=== PATIENT | male | born 1945 | race Caucasian/White ===

== ENCOUNTER 2018-02-07 20:38 | Inpatient (IN) ==
[2018-02-07] MEDS ORDERED: Acetaminophen 325 MG TABLET PO PRN (21:08)
[2018-02-07] MEDS ORDERED: tiZANidine 4 MG TABLET PO PRN (21:08)
[2018-02-07] MEDS ORDERED: D5% in Water 1,000 ML IVC PRN (21:17)
[2018-02-07] MEDS ORDERED: *HR* Dextrose 50 % in Water (Syg) 50 ML SYRINGE IVP PRN (21:17)
[2018-02-07] MEDS ORDERED: Dextrose Gel 15 GM/37.5 ML TUBE PO PRN ×2 (21:17)
[2018-02-07] MEDS ORDERED: Mag Hydrox/Al Hydrox/Simeth 30 ML UDC PO PRN (21:46)
[2018-02-07] MEDS: Gabapentin 300 MG CAPSULE PO SCH (23:09)
[2018-02-07] MEDS: traZODone 50 MG TABLET PO SCH (23:10)
[2018-02-07] MEDS: Ipratropium/Albuterol Neb 3 ML IH SCH (23:11)
[2018-02-08] MEDS: Ipratropium/Albuterol Neb 3 ML IH SCH ×2 (03:42→09:25)
[2018-02-08] MEDS: *HR* OxyCODONE Immed Rel 5 MG TABLET PO PRN ×3 (03:53→14:34)
[2018-02-08] MEDS: *HR* Enoxaparin 40 MG/0.4 ML SYRINGE SQ SCH (05:27)
[2018-02-08 06:09] LABS: Basophils # 0.1 K/mcL (0.0-0.2); Basophils % 0.6 %; Eosinophils # 0.6 K/mcL (0.0-0.6); Hematocrit 33.1 % (37.5-50.1); Immature Granulocytes % 0.9 % (0-4); Lymphocytes # 1.4 K/mcL (0.6-4.6); Lymphocytes % 11.7 %; Mean Corpuscular HGB Conc 33.2 g/dL (31.6-35.5); Mean Corpuscular Hemoglobin 30.5 pg (28.0-33.3); Mean Corpuscular Volume 91.7 fL (83.0-100.0); Mean Platelet Volume 9.8 fL (9.4-12.4); Monocytes # 1.1 K/mcL (0.0-1.3); Monocytes % 9.5 %; Neutrophils # 8.7 K/mcL (1.6-8.9); Platelet Count 398 K/mcL (140-400); Red Blood Count 3.61 M/mcL (4.19-5.50); Red Cell Distribution Width 13.4 % (11.5-14.5); Segmented Neutrophils % 72.3 %
[2018-02-08 06:16] LABS: INR 1.3; Prothrombin Time 14.2 Seconds (9.4-12.1)
[2018-02-08 06:18] LABS: Activated Partial Thrombo Time 29.6 Seconds (26.0-36.0)
[2018-02-08 06:28] LABS: Alanine Aminotransferase 44 Units/L (7-52); Albumin 3.6 g/dL (3.5-5.7); Albumin/Globulin Ratio 1.3 (1.1-2.2); Alkaline Phosphatase 46 Units/L (34-104); Aspartate Amino Transferase 36 Units/L (13-39); BUN/Creatinine Ratio 22 (6-26); Bilirubin,Total 0.8 mg/dL (0.3-1.0); Blood Urea Nitrogen 17 mg/dL (8-23); Calcium 8.8 mg/dL (8.6-10.3); Carbon Dioxide 23 mEq/L (23-29); Chloride 104 mEq/L (98-107); Globulin 2.7 g/dL (2.4-3.5); Glucose 148 mg/dL (70-105); Magnesium 2.2 mg/dL (1.6-2.6); Osmolality,Calculated 280 (280-300); Potassium 3.9 mEq/L (3.5-5.1); Sodium 133 mEq/L (136-145); Total Protein 6.3 g/dL (6.4-8.9); eGFR For Non-African Americans > 60 (> 60)
[2018-02-08] MEDS: Insulin LISPRO 300 UNITS/3 ML VIAL SQ SCH ×3 (07:40→16:35)
[2018-02-08] MEDS: Aspirin 81 MG TAB.CHEW PO SCH (09:15)
[2018-02-08] MEDS: *HR* Metformin 500 MG TABLET PO SCH ×2 (09:15→16:40)
[2018-02-08] MEDS: Doxycycline 100 MG CAPSULE PO SCH ×2 (09:15→21:13)
[2018-02-08] MEDS: Gabapentin 300 MG CAPSULE PO SCH ×3 (09:15→21:11)
[2018-02-08] MEDS: levoFLOXacin 750 MG TABLET PO SCH (09:16)
--- NOTE | 2018-02-08 10:49 | Internal Med History&Physical ---
Addendum entered and electronically signed by Baron Box MD 02/08/18 11:21: I have personally performed a face to face evaluation on this patient. I have r eviewed and agree with the care plan. History and Exam by me shows: Patient is status post left total knee replacement on 01/31 2018. He had postoperative fever but negative duplex, chest x-ray, urine sample, per verbal report. For this reason, he was placed on doxycycline and Levaquin for 7 days each. The patient initially had breathing trouble, right after anesthesia and received breathing treatments. However, he feels he does not require them now. I told him we would change this to as needed. History and physical were reviewed with patient as he is known to me. He is edentulous and wears dentures but is not sure where they are. He wears glasses. He has not had a bowel movement for a couple of days and is concerned about this. I told him that he should have MiraLAX as needed. Patient has no complaint of chest discomfort, dyspnea, orthopnea, breathing problems, palpitations, nausea or vomiting, constipation or diarrhea, other changes in bowel habits, heartburn, difficulty with urination, kidney problems or kidney stones, fevers chills or sweats, rash or itching, seizures, headache or lightheadedness, heat or cold intolerance, blood problems or anemia, or other new complaints, except as mentioned above. Review of systems is otherwise negative. Examination: (Except as mentioned above): General: In no apparent distress, alert and oriented 3. Head: Atraumatic and normocephalic. Eyes: Extraocular muscles are intact, pupils equal round and reactive to light and accommodation. Sclerae anicteric. He is wearing glasses Ears: External ears are normal to inspection and hearing is grossly normal. Nose: Patent without lesion noted. Mouth: No intraoral lesions seen. Dentition is unremarkable. edentulous. Neck: Supple with trachea midline. There is no thyromegaly or adenopathy and carotids are 2+ without bruit heard. Respiratory: No use of accessory muscles. Lungs are clear totally throughout. Normal airflow. Cardiovascular: Regular rate and rhythm without murmur appreciated. Abdomen: Bowel sounds are normal. No hepatosplenomegaly masses or tenderness. Obese and therefore difficult to palpate deeply. Extremities: No cyanosis clubbing or edema. He has no cord or calf tenderness. He has trace edema at the left ankle. The wound is dressed but is intact without significant redness or drainage. Neurological: A and O 3. Cranial nerves II through XII are intact. No focal deficits and no abnormal movements or postures. Skin: Warm and non-diaphoretic with no lesions noted. Breasts, pelvic and rectal: Not examined. Original Note: Date of Encounter: 02/08/18 Time of Encounter: 10:45 Assessment and Plan (1) Status post total left knee replacement Current visit: Yes Status: Acute Patient admitted to this facility for rehabilitation due to deconditioning secondary to his left total knee replacement. Left knee with midline a surgical incision that appears healthy and intact with moderate amount of ecchymosis surrounding incision. No erythema noted. Moderate amount of edema noted to left knee. Patient states that he continues to have pain during mobilization but that his pain has been well-tolerated with current pain medications and use. Patient participating in therapy and states that is going well. We will continue with current plan of care. Patient currently on doxycycline a Levaquin and will continue for prescribed 7 days per surgery. (2) Leukocytosis Current visit: Yes Status: Acute No acute issues at this time. Patient's WBC count remains slightly elevated at 12. Patient has been afebrile. Patient is a slightly elevated heart rate at 90-110. Patient continues on Levaquin and doxycycline were prescribed 7 days per surgery. Qualifiers: Leukocytosis type: unspecified Qualified Code(s): D72.829 - Elevated white blood cell count, unspecified (3) Hypertension Current visit: No Status: Chronic Vital signs have remained stable during her stay at this facility. We will continue with current medications. Qualifiers: Hypertension type: essential hypertension Qualified Code(s): I10 - Essential (primary) hypertension (4) Coronary artery disease Current visit: No Status: Chronic No acute issues. Patient denies any chest palpitations or discomforts. Vital signs stable. Heart rate remains slightly elevated at 90-110 remains regular w ith no pauses noted. Recent EKG shows sinus tachycardia Qualifiers: Coronary Disease-Associated Artery/Lesion type: [place] artery [place] vs. transplanted heart: [place] heart Associated angina: without angina Qualified Code(s): I25.10 - Atherosclerotic heart disease of [place] coronary artery without angina pectoris (5) Type 2 diabetes mellitus Current visit: No Status: Chronic No acute issues. Patient's glucose has been fairly well-controlled with fingersticks showing 150-170. We will continue with current medications and continue to monitor. 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 Thomas is a 72 year old male with past medical history significant for CAD with stents, GERD, GI bleed, hyperlipidemia, and prior orthopedic surgeries who is currently admitted after undergoing a left robotic assisted total knee re placement on 01/31/2018. On 02/02/2018 the patient developed sinus tachycardia confirmed with EKG, shortness of breath with reported further diminished breath sounds, and fever with increased white blood cell count. Diagnostic workup included a chest xray , which was clear and ventilation perfusion scan was obtained which was negative for PE. Patients status improved over the next following days. Cultures showed no growth. Patient states that his respiratory status improved and currently denies any dyspnea. Patient's WBC remains slightly elevated at 12. Patient's heart rate has remained slightly elevated, but regular at 90-110. Patient has been afebrile. Denies any chest pain, shor tness of breath, productive cough, chills, vomiting, diarrhea, or urinary changes. Patient was transferred to this facility for further rehabilitation due to deconditioning secondary to his left total knee replacement. Patient states that he continues to have pain to his knee during mobilization with that his pain is tolerable with current pain medications. Past Med Surg Social Fam HX - Past Medical History Medical history: arthritis, coronary artery disease, diabetes, GERD, hyperlipidemia, hypertension, myocardial infarction Additional medical history: MULTIPLE CARDIAC STENTS Psychiatric history: no psych history - Past Surgical History Surgical History: other Additional surgical history: Right knee replacement, LEFT HIP REPLACMENT - Social History Smoking Status: Former smoker Smokeless Tobacco Status: No Alcohol use: none Drug use: none - Family History Father Hx Family Cardiac Disorders: Yes Internal Medicine - H&P: Meds Clopidogrel [Plavix] 75 mg PO DAILY 02/02/17 [History] Ezetimibe 10 mg PO DAILY 02/02/17 [History] Gabapentin [Neurontin] 600 mg PO TID 02/02/17 [History] Pantoprazole Sodium 40 mg PO BID 02/02/17 [History] Simvastatin [Zocor] 80 mg PO HS 02/02/17 [History] metFORMIN [Glucophage] 500 mg PO BIDWM 02/02/17 [History] Docusate [Colace] 100 mg PO BID 10 Days #20 capsule 01/30/18 [Rx] Trazodone HCl 50 mg PO HS 01/31/18 [History] Acetaminophen [Tylenol] 650 mg PO Q6HR PRN 02/07/18 [History] Aspirin [Lo-Dose Aspirin EC] 81 mg PO 02/07/18 [History] Doxycycline 100 mg PO BID 7 Days #14 capsule 02/07/18 [Rx] Ipratropium/Albuterol Neb [Duoneb] 3 ml IH [id number] inhsol 02/07/18 [Rx] Lidocaine Patch [Lidoderm 5% patch] 1 each TP DAILY adh..patch 02/07/18 [Rx] Metoprolol [Lopressor] 50 mg PO BID tablet 02/07/18 [Rx] OxyCODONE Immed Rel [Roxicodone 5 MG] 5 mg PO Q4HR PRN 02/07/18 [History] Tizanidine HCl [Zanaflex] 4 mg PO Q8HR PRN 02/07/18 [History] levoFLOXacin [Levaquin] 750 mg PO DAILY 7 Days #7 tablet 02/07/18 [Rx] Allergy/AdvReac Type Severity Reaction Status Date / Time Penicillins Allergy Hives Verified 01/31/18 07:41 acetaminophen AdvReac lack of Verified 11/29/17 14:53 [From Tylenol-Codeine #3] therapeutic effect codeine AdvReac lack of Verified 11/29/17 14:53 [From Tylenol-Codeine #3] therapeutic effect All Systems PM: A 10-system review of systems was performed and is negative for pertinent findings except as documented above in the HPI. - Constitutional Constitutional: as per HPI, no chills, no fever(s), no night sweats - EENT Eyes: as per HPI, no change in vision, no discharge, no pain, no photophobia Ears: no ear discharge, no ear pain, no tinnitus Nose, mouth and throat: no dysphagia, no nasal discharge, no neck pain, no sore throat - Cardiovascular Cardiovascular ROS IM: as per HPI, no chest pain, no diaphoresis, no dyspnea, no lightheadedness, no palpitations, no syncope - Respiratory Respiratory: as per HPI, no cough, no dyspnea, no wheezing, no excessive phlegm production - Gastrointestinal Gastrointestinal: as per HPI, no abdominal pain, no diarrhea, no hematemesis, no hematochezia, no melena, no nausea, no vomiting - Genitourinary Genitourinary ROS male: as per HPI - Musculoskeletal Musculoskeletal ROS IM: as per HPI, no numbness, no tingling - Integumentary Integumentary IM: as per HPI, no rash, no unusual bruising - Neurological Neurological ROS: no confusion, no convulsions, no focal weakness, no numbness, no tingling, no tremor(s) - Hematologic/Lymphatic Hematologic/Lymphatic: no easy bruising - Constitutional Vitals: Temp Pulse Resp BP Pulse Ox 98.9 F 100 18 139/83 92 02/08/18 06:25 02/08/18 06:25 02/08/18 09:29 02/08/18 06:25 02/08/18 09:29 General appearance: Present: A&O X 3, pleasant - Head Head exam: Present: atraumatic, normocephalic - Eye Eye exam: Present: PERRL, conjuntiva pink, sclera anicteric Pupils: Present: PERRL - Neck Neck exam general surgery: Present: supple, trachea midline. Absent: lymphadenopathy - Respiratory Respiratory exam: Present: CTAB. Absent: accessory muscle use, rales, rhonchi, wheezes - Cardiovascular Cardiovascular exam: Present: RRR, +S1, +S2. Absent: diastolic murmur, gallop, rubs, systolic murmur Additional comments: Heart rate remains regular but slightly elevated at 90-110. No pulses noted - GI/Abdominal GI/Abdominal exam: Present: normal bowel sounds, soft, no peritoneal signs. Absent: distended, tenderness - Extremities Exam Extremities exam: Present: warm, radial pulses palpable and symmetrical. Absent: calf tenderness, cyanotic, pedal edema Additional comments: Left knee remains slightly swollen. Surgical incision appears intact and healthy with no erythema. Noted moderate amount of ecchymosis surrounding surgical incision. - Neurological Exam Neurological exam: Present: CN II-XII intact, oriented X3, no focal deficits. Absent: pronater drift, facial droop, speech deficit - Skin Skin exam: Present: dry, intact Internal Med - H&P Results - Labs CBC & Chem 7: 02/08/18 05:25 02/08/18 05:25 Labs: Short CBC 02/08/18 Range/Units 05:25 WBC 12.0 H (4.3-11.1) K/mcL Hgb 11.0 L (12.9-16.9) g/dL Hct 33.1 L (37.5-50.1) % Plt Count 398 (140-400) K/mcL Neutrophils # 8.7 (1.6-8.9) K/mcL BMP 02/08/18 05:25 Sodium 133 L Potassium 3.9 Chloride 104 Carbon Dioxide 23 BUN 17 Creatinine 0.79 Glucose 148 H Calcium 8.8 Liver Function 02/08/18 Range/Units 05:25 Total Bilirubin 0.8 (0.3-1.0) mg/dL AST 36 (13-39) Units/L ALT 44 (7-52) Units/L Alkaline Phosphatase 46 (34-104) Units/L Albumin 3.6 (3.5-5.7) g/dL
[2018-02-08] MEDS ORDERED: Ipratropium/Albuterol Neb 3 ML IH PRN (11:16)
[2018-02-08] MEDS ORDERED: Insulin LISPRO 300 UNITS/3 ML VIAL SQ SCH (21:00)
[2018-02-08] MEDS: traZODone 50 MG TABLET PO SCH (21:11)
[2018-02-09] MEDS: *HR* OxyCODONE Immed Rel 5 MG TABLET PO PRN ×4 (06:25→21:03)
[2018-02-09] MEDS: *HR* Enoxaparin 40 MG/0.4 ML SYRINGE SQ SCH (06:25)
[2018-02-09] MEDS: Insulin LISPRO 300 UNITS/3 ML VIAL SQ SCH ×2 (07:40→12:45)
[2018-02-09] MEDS: Doxycycline 100 MG CAPSULE PO SCH ×2 (07:55→19:37)
[2018-02-09] MEDS: Gabapentin 300 MG CAPSULE PO SCH ×3 (07:55→19:37)
[2018-02-09] MEDS: *HR* Metformin 500 MG TABLET PO SCH ×2 (07:55→17:07)
[2018-02-09] MEDS: Aspirin 81 MG TAB.CHEW PO SCH (07:55)
[2018-02-09] MEDS: levoFLOXacin 750 MG TABLET PO SCH (07:55)
--- NOTE | 2018-02-09 11:02 | Internal Med Progress Note ---
Date of Encounter: 02/09/18 Time of Encounter: 10:59 - Assessment and plan (1) Status post total left knee replacement Current Visit: Yes Status: Acute Assessment and plan: Plan is to continue on with therapy. He is doing well, less far. Anticipate discharge in 3 or 4 days. (2) Coronary artery disease Current Visit: No Status: Chronic Assessment and plan: Clinically stable with no signs or symptoms. Qualifiers: Coronary Disease-Associated Artery/Lesion type: [place] artery [place] vs. transplanted heart: [place] heart Associated angina: without angina Qualified Code(s): I25.10 - Atherosclerotic heart disease of [place] coronary artery without angina pectoris (3) Hypertension Current Visit: No Status: Chronic Assessment and plan: Stable, will follow. Qualifiers: Hypertension type: essential hypertension Qualified Code(s): I10 - Essential (primary) hypertension (4) Leukocytosis Current Visit: Yes Status: Acute Assessment and plan: Patient without signs of infection. He remains on antibiotics, empirically. He is to follow-up with surgeon, soon. Qualifiers: Leukocytosis type: unspecified Qualified Code(s): D72.829 - Elevated white blood cell count, unspecified (5) Type 2 diabetes mellitus Current Visit: No Status: Chronic Assessment and plan: Clinically stable. Will follow with current regimen and sliding scale. 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 She is doing well in therapy. His swellin g has diminished. He notes that currently his pain is about 4 out of 10, was up to 8 out of 10 with therapy, but had no pain overnight. He is moving his bowels. Discussed care with other providers and/or nursing. Patient has no complaint of chest discomfort, dyspnea, orthopnea, palpitations, nausea or vomiting, constipation or diarrhea, other changes in bowel habits, difficulty with urination, rash or itching, or other new complaints, except as mentioned above. Review of systems is otherwise negative. Examination: (Except as mentioned above): General: In no apparent distress. Alert and oriented 3. Nondiaphoretic. Head: Atraumatic and normocephalic. Respiratory: No use of accessory muscles. Lungs are clear throughout. Normal airflow. Cardiovascular: Regular rate and rhythm without murmur appreciated. Abdomen: Bowel sounds are normal. No hepatosplenomegaly mass or tenderness appreciated. Obese and therefore difficult to palpate deeply. Extremities: No cyanosis clubbing or edema. (There is not even a trace.) Skin: Warm and non-diaphoretic with no new lesions noted. - Constitutional Vitals: Temp Pulse Resp BP Pulse Ox 98.5 F 99 16 151/82 95 02/09/18 06:52 02/09/18 06:52 02/09/18 06:52 02/09/18 06:52 02/09/18 06:52 Exam: Examination: (Except as mentioned above): General: In no apparent distress. Alert and oriented 3. Nondiaphoretic. Head: Atraumatic and normocephalic. Respiratory: No use of accessory muscles. Lungs are clear throughout. Normal airflow. Cardiovascular: Regular rate and rhythm without murmur appreciated. Abdomen: Bowel sounds are normal. No hepatosplenomegaly mass or tenderness appreciated. Obese and therefore difficult to palpate deeply. Extremities: No cyanosis clubbing or edema. Skin: Warm and non-diaphoretic with no new lesions noted. Internal Medicine: Result - Labs CBC & Chem 7: 02/08/18 05:25 02/08/18 05:25 - ABG Interpretation ABG results: PT/INR, D-dimer PT 14.2 Seconds (9.4-12.1) H 02/08/18 05:25 Consult Discharge Plan - Plan Referrals: Caity Lutz CNP [Primary Care Provider] -
[2018-02-09] MEDS: traZODone 50 MG TABLET PO SCH (19:37)
[2018-02-10] MEDS: *HR* Enoxaparin 40 MG/0.4 ML SYRINGE SQ SCH (05:27)
[2018-02-10] MEDS: *HR* OxyCODONE Immed Rel 5 MG TABLET PO PRN ×4 (05:28→21:14)
[2018-02-10] MEDS: Gabapentin 300 MG CAPSULE PO SCH ×3 (08:00→21:12)
[2018-02-10] MEDS: *HR* Metformin 500 MG TABLET PO SCH ×2 (08:00→16:17)
[2018-02-10] MEDS: Doxycycline 100 MG CAPSULE PO SCH ×2 (08:00→21:12)
[2018-02-10] MEDS: Aspirin 81 MG TAB.CHEW PO SCH (08:00)
[2018-02-10] MEDS: levoFLOXacin 750 MG TABLET PO SCH (08:02)
--- NOTE | 2018-02-10 13:06 | Internal Med Progress Note ---
Date of Encounter: 02/10/18 Time of Encounter: 13:07 - Assessment and plan (1) Status post total left knee replacement Current Visit: Yes Status: Acute Assessment and plan: We will continue with therapies as planned. Hopefully, we will have discharge in 2-3 days. (2) Coronary artery disease Current Visit: No Status: Chronic Assessment and plan: Clinically stable with no signs or symptoms. Qualifiers: Coronary Disease-Associated Artery/Lesion type: [place] artery [place] vs. transplanted heart: [place] heart Associated angina: without angina Qualified Code(s): I25.10 - Atherosclerotic heart disease of [place] coronary artery without angina pectoris (3) Hypertension Current Visit: No Status: Chronic Assessment and plan: Blood pressure is stable without issue. Qualifiers: Hypertension type: essential hypertension Qualified Code(s): I10 - Essential (primary) hypertension (4) Leukocytosis Current Visit: Yes Status: Acute Assessment and plan: Improved. Qualifiers: Leukocytosis type: unspecified Qualified Code(s): D72.829 - Elevated white blood cell count, unspecified (5) Type 2 diabetes mellitus Current Visit: No Status: Chronic Assessment and plan: Clinically stable. 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 He is pleased with his progress once go home soon. He has no problems with bowels or bladder. Discussed care with other providers and/or nursing. Patient has no complaint of chest discomfort, dyspnea, orthopnea, palpitations, nausea or vomiting, constipation or diarrhea, other changes in bowel habits, difficulty with urination, rash or itching, or other new complaints, except as mentioned above. Review of systems is otherwise negative. Examination: (Except as mentioned above): - Constitutional Vitals: Temp Pulse Resp BP Pulse Ox 98.1 F 94 15 116/54 93 02/10/18 07:23 02/10/18 07:23 02/10/18 07:23 02/10/18 07:23 02/10/18 07:23 Exam: Examination: (Except as mentioned above): General: In no apparent distress. Alert and oriented 3. Nondiaphoretic. Head: Atraumatic and normocephalic. Respiratory: No use of accessory muscles. Lungs are clear throughout. Normal airflow. Cardiovascular: Regular rate and rhythm without murmur appreciated. Abdomen: Bowel sounds are normal. No hepatosplenomegaly mass or tenderness appreciated. Obese and therefore difficult to palpate deeply. Extremities: No cyanosis clubbing or edema. He has minimal edema near his incision but otherwise none. Skin: Warm and non-diaphoretic with no new lesions noted. Internal Medicine: Result - Labs CBC & Chem 7: 02/08/18 05:25 02/08/18 05:25 - ABG Interpretation ABG results: PT/INR, D-dimer PT 14.2 Seconds (9.4-12.1) H 02/08/18 05:25 Consult Discharge Plan - Plan Referrals: Caity Lutz CNP [Primary Care Provider] -
[2018-02-10] MEDS: traZODone 50 MG TABLET PO SCH (21:13)
[2018-02-11] MEDS: *HR* Enoxaparin 40 MG/0.4 ML SYRINGE SQ SCH (05:05)
[2018-02-11] MEDS: *HR* OxyCODONE Immed Rel 5 MG TABLET PO PRN ×2 (05:10→15:57)
[2018-02-11] MEDS: levoFLOXacin 750 MG TABLET PO SCH (08:19)
[2018-02-11] MEDS: *HR* Metformin 500 MG TABLET PO SCH ×2 (08:19→15:57)
[2018-02-11] MEDS: Aspirin 81 MG TAB.CHEW PO SCH (08:20)
[2018-02-11] MEDS: Doxycycline 100 MG CAPSULE PO SCH ×2 (08:20→20:27)
[2018-02-11] MEDS: Gabapentin 300 MG CAPSULE PO SCH ×3 (08:21→20:27)
--- NOTE | 2018-02-11 17:12 | Internal Med Progress Note ---
Date of Encounter: 02/11/18 Time of Encounter: 16:30 - Assessment and plan (1) Status post total left knee replacement Current Visit: Yes Status: Acute Assessment and plan: We will continue therapy and plan home, soon. (2) Coronary artery disease Current Visit: No Status: Chronic Assessment and plan: No current signs or symptoms. Qualifiers: Coronary Disease-Associated Artery/Lesion type: [place] artery [place] vs. transplanted heart: [place] heart Associated angina: without angina Qualified Code(s): I25.10 - Atherosclerotic heart disease of [place] coronary artery without angina pectoris (3) Hypertension Current Visit: No Status: Chronic Assessment and plan: Clinically stable. Qualifiers: Hypertension type: essential hypertension Qualified Code(s): I10 - Essenti al (primary) hypertension (4) Leukocytosis Current Visit: Yes Status: Acute Assessment and plan: Clinically stable and will recheck tomorrow. Qualifiers: Leukocytosis type: unspecified Qualified Code(s): D72.829 - Elevated white blood cell count, unspecified (5) Type 2 diabetes mellitus Current Visit: No Status: Chronic Assessment and plan: Adequate control and will continue sliding scale insulin coverage. 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 He states that he wants to go home and would be happy to go home today. He has no problems with constipation or diarrhea. He is emptying his bladder, well. Discussed care with other providers and/or nursing. Patient has no complaint of chest discomfort, dyspnea, orthopnea, palpitations, nausea or vomiting, constipation or diarrhea, other changes in bowel habits, difficulty with urination, rash or itching, or other new complaints, except as mentioned above. Review of systems is otherwise negative. - Constitutional Vitals: Temp Pulse Resp BP Pulse Ox 97.9 F 99 15 135/74 95 02/11/18 09:08 02/11/18 09:08 02/11/18 09:08 02/11/18 09:08 02/11/18 09:08 Exam: Examination: (Except as mentioned above): General: In no apparent distress. Alert and oriented 3. Nondiaphoretic. Head: Atraumatic and normocephalic. Respiratory: No use of accessory muscles. Lungs are clear throughout. Normal airflow. Cardiovascular: Regular rate and rhythm without murmur appreciated. Abdomen: Bowel sounds are normal. No hepatosplenomegaly mass or tenderness appreciated. Obese and therefore difficult to palpate deeply. Extremities: No cyanosis clubbing or significant change in edema. There is trace edema at his left calf and ankle but no cord or calf tenderness. Wound looks good. No significant drainage. Skin: Warm and non-diaphoretic with no new lesions noted. Internal Medicine: Result - Labs CBC & Chem 7: 02/08/18 05:25 02/08/18 05:25 - ABG Interpretation ABG results: PT/INR, D-dimer PT 14.2 Seconds (9.4-12.1) H 02/08/18 05:25 Consult Discharge Plan - Plan Referrals: Caity Lutz PROTOTYPE MACHINIST [Primary Care Provider] -
[2018-02-11] MEDS: traZODone 50 MG TABLET PO SCH (20:27)
[2018-02-12] MEDS: *HR* OxyCODONE Immed Rel 5 MG TABLET PO PRN ×3 (06:05→15:12)
[2018-02-12] MEDS: *HR* Enoxaparin 40 MG/0.4 ML SYRINGE SQ SCH (06:05)
[2018-02-12 08:11] VITALS: BP 151/80
[2018-02-12] MEDS: Aspirin 81 MG TAB.CHEW PO SCH (08:34)
[2018-02-12] MEDS: *HR* Metformin 500 MG TABLET PO SCH (08:34)
[2018-02-12] MEDS: Gabapentin 300 MG CAPSULE PO SCH (08:34)
[2018-02-12] MEDS: levoFLOXacin 750 MG TABLET PO SCH (08:34)
[2018-02-12] MEDS: Doxycycline 100 MG CAPSULE PO SCH (08:34)
[2018-02-12 11:13] LABS: Basophils # 0.1 K/mcL (0.0-0.2); Basophils % 0.6 %; Eosinophils # 0.6 K/mcL (0.0-0.6); Eosinophils % 3.6 %; Hematocrit 35.7 % (37.5-50.1); Hemoglobin 11.6 g/dL (12.9-16.9); Immature Granulocytes % 0.9 % (0-4); Lymphocytes # 1.7 K/mcL (0.6-4.6); Lymphocytes % 10.7 %; Mean Corpuscular HGB Conc 32.5 g/dL (31.6-35.5); Mean Corpuscular Hemoglobin 30.2 pg (28.0-33.3); Mean Platelet Volume 9.3 fL (9.4-12.4); Monocytes # 1.3 K/mcL (0.0-1.3); Monocytes % 8.2 %; Neutrophils # 12.4 K/mcL (1.6-8.9); Platelet Count 475 K/mcL (140-400); Red Blood Count 3.84 M/mcL (4.19-5.50); Red Cell Distribution Width 13.3 % (11.5-14.5)
[2018-02-12 11:25] LABS: BUN/Creatinine Ratio 29 (6-26); Blood Urea Nitrogen 25 mg/dL (8-23); Calcium 9.4 mg/dL (8.6-10.3); Carbon Dioxide 25 mEq/L (23-29); Chloride 102 mEq/L (98-107); Glucose 98 mg/dL (70-105); Osmolality,Calculated 280 (280-300); Potassium 4.2 mEq/L (3.5-5.1); Sodium 133 mEq/L (136-145); eGFR For Non-African Americans > 60 (> 60)
--- NOTE | 2018-02-12 11:46 | Internal Med Progress Note ---
Date of Encounter: 02/12/18 Time of Encounter: 11:44 - Assessment and plan (1) Status post total left knee replacement Current Visit: Yes Status: Acute Assessment and plan: He will continue with therapy and education for potential discharge today or tomorrow. (2) Coronary artery disease Current Visit: No Status: Chronic Assessment and plan: He has no current signs or symptoms. Qualifiers: Coronary Disease-Associated Artery/Lesion type: [place] artery [place] vs. transplanted heart: [place] heart Associated angina: without angina Qualified Code(s): I25.10 - Atherosclerotic heart disease of [place] coronary artery without angina pectoris (3) Hypertension Current Visit: No Status: Chronic Assessment and plan: Adequately controlled. Qualifiers: Hypertension type: essential hypertension Qualified Code(s): I10 - Essential (primary) hypertension (4) Leukocytosis Current Visit: Yes Status: Acute Assessment and plan: He is to follow-up soon with his surgeon. He shows no signs of infection and joint, urinary, respiratory, or otherwise. Qualifiers: Leukocytosis type: unspecified Qualified Code(s): D72.829 - Elevated white blood cell count, unspecified (5) Type 2 diabetes mellitus Current Visit: No Status: Chronic Assessment and plan: This is controlled and we will continue sliding scale insulin, while in the h ospital. 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 He states that the erythema is not same as yesterday, and his left lower extremity. He is pleased with his progress with therapy and again wants to go home. Discussed care with other providers and/or nursing. Patient has no complaint of chest discomfort, dyspnea, orthopnea, palpitations, nausea or vomiting, constipation or diarrhea, other changes in bowel habits, difficulty with urination, rash or itching, or other new complaints, except as mentioned above. Review of systems is otherwise negative. - Constitutional Vitals: Temp Pulse Resp BP Pulse Ox 98.7 F 103 16 151/80 94 02/12/18 08:10 02/12/18 08:10 02/12/18 08:10 02/12/18 08:10 02/12/18 08:10 Exam: Examination: (Except as mentioned above): General: In no apparent distress. Alert and oriented 3. Nondiaphoretic. Head: Atraumatic and normocephalic. Respiratory: No use of accessory muscles. Lungs are clear throughout. Normal airflow. Cardiovascular: Regular rate and rhythm without murmur appreciated. Abdomen: Bowel sounds are normal. No hepatosplenomegaly mass or tenderness appreciated. Obese and therefore difficult to palpate deeply. Extremities: No cyanosis clubbing or change in edema. Skin: Warm and non-diaphoretic with no new lesions noted. Internal Medicine: Result - Labs CBC & Chem 7: 02/12/18 11:00 02/12/18 11:00 Labs: Short CBC 02/12/18 Range/Units 11:00 WBC 16.3 H (4.3-11.1) K/mcL Hgb 11.6 L (12.9-16.9) g/dL Hct 35.7 L (37.5-50.1) % Plt Count 475 H (140-400) K/mcL Neutrophils # 12.4 H (1.6-8.9) K/mcL BMP 02/12/18 11:00 Sodium 133 L Potassium 4.2 Chloride 102 Carbon Dioxide 25 BUN 25 H Creatinine 0.87 Glucose 98 Calcium 9.4 - ABG Interpretation ABG results: PT/INR, D-dimer PT 14.2 Seconds (9.4-12.1) H 02/08/18 05:25 Consult Discharge Plan - Plan Referrals: Caity Lutz NOTCHED BLADE LOADER [Primary Care Provider] -
--- NOTE | 2018-02-12 12:52 | Discharge Summary ---
Addendum entered and electronically signed by Baron Box MD 02/12/18 13:24: I have personally performed a face to face evaluation on this patient. I have r eviewed and agree with the care plan. History and Exam by me shows: Please see my progress note from this date. We will continue his antibiotics for another week, given his elevated white count. The patient has been instructed to notify medical practitioners, should he develop fever or other signs of infection. Original Note: Date of Encounter: 02/12/18 Time of Encounter: 12:49 - Discharge Diagnosis (1) Status post total left knee replacement Priority: Primary Status: Acute Comments: healing. pain controlled with current meds. ambulating household distances. continue Home health PT and nursing. f/u with ortho. (2) Leukocytosis Priority: Secondary Status: Acute Comments: WBC 16.0. No sign of infection. Instructed to seek medical care if symptoms arise or becomes febrile. Qualifiers: Leukocytosis type: unspecified Qualified Code(s): D72.829 - Elevated white blood cell count, unspecified (3) Hypertension Priority: Secondary Status: Chronic Comments: Controlled with current medication. Monitor blood pressure. Follow up with PCP. Qualifiers: Hypertension type: essential hypertension Qualified Code(s): I10 - Essential (primary) hypertension (4) Coronary artery disease Priority: Secondary Status: Chronic Comments: Stable. Denies chest pain. Continue current medication. Follow up with PCP. Qualifiers: Coronary Disease-Associated Artery/Lesion type: [place] artery [place] vs. transplanted heart: [place] heart Associated angina: without angina Qualified Code(s): I25.10 - Atherosclerotic heart disease of [place] coronary artery without angina pectoris (5) Type 2 diabetes mellitus Priority: Secondary Status: Chronic Comments: Controlled with current medication. Monitor fingerstick blood sugar. Follow up with PCP. 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 Thomas is a 72 year old male - Time Spent with Patient Total time spent providing and/or coordinating discharge services: - Discharge Medications Home Medications: Clopidogrel [Plavix] 75 mg PO DAILY 02/02/17 [History] Ezetimibe 10 mg PO DAILY 02/02/17 [History] Gabapentin [Neurontin] 600 mg PO TID 02/02/17 [History] Pantoprazole Sodium 40 mg PO BID 02/02/17 [History] Simvastatin [Zocor] 80 mg PO HS 02/02/17 [History] metFORMIN [Glucophage] 500 mg PO BIDWM 02/02/17 [History] Docusate [Colace] 100 mg PO BID 10 Days #20 capsule 01/30/18 [Rx] Trazodone HCl 50 mg PO HS 01/31/18 [History] Acetaminophen [Tylenol] 650 mg PO Q6HR PRN 02/07/18 [History] Aspirin [Lo-Dose Aspirin EC] 81 mg PO 02/07/18 [History] Doxycycline 100 mg PO BID 7 Days #14 capsule 02/07/18 [Rx] Ipratropium/Albuterol Neb [Duoneb] 3 ml IH [id number] inhsol 02/07/18 [Rx] Lidocaine Patch [Lidoderm 5% patch] 1 each TP DAILY adh..patch 02/07/18 [Rx] Metoprolol [Lopressor] 50 mg PO BID tablet 02/07/18 [Rx] OxyCODONE Immed Rel [Roxicodone 5 MG] 5 mg PO Q4HR PRN 02/07/18 [History] Tizanidine HCl [Zanaflex] 4 mg PO Q8HR PRN 02/07/18 [History] levoFLOXacin [Levaquin] 750 mg PO DAILY 7 Days #7 tablet 02/07/18 [Rx] Mag Hydrox/Al Hydrox/Simeth [Maalox] 30 ml PO Q4H PRN udc 02/12/18 [Rx] Polyethylene Glycol 3350 [MiraLAX] 17 gm PO DAILY PRN powd.pack 02/12/18 [Rx] Allergies/Adverse Reactions: Allergy/AdvReac Type Severity Reaction Status Date / Time Penicillins Allergy Hives Verified 01/31/18 07:41 acetaminophen AdvReac lack of Verified 11/29/17 14:53 [From Tylenol-Codeine #3] therapeutic effect codeine AdvReac lack of Verified 11/29/17 14:53 [From Tylenol-Codeine #3] therapeutic effect Date of admission: 02/07/18 20:39 Primary care physician: Caity Lutz FOOT DOCTOR Consults: 02/07/18 21:14 Consult to Occupational Therapy [CONS] Routine Comment: Evaluate, develop and implement POC Reason for Consult: Eval and Treat Does patient have active BEDREST order?: No Is patient medically & hemodynamically stable?: Yes Patient assessed for mobility or mobilized this visit?: No Consult to Physical Medicine/Rehab [CONS] Routine Reason for Consult: Eval and Treat Call Completed: No Consult to Physical Therapy [CONS] Routine Comment: Evaluate, develop and implement POC Reason for Consult: Eval and Treat Does patient have active BEDREST order?: No Is patient medically & hemodynamically stable?: Yes Patient assessed for mobility or mobilized this visit?: No Consult to Recreational Therapy [CONS] Routine Comment: Evaluate, develop and implement POC Consult to Supercharger Mechanic [CONS] Routine Reason for SW Consult: Eval and Treat Discharging clinician: Baron Box Anticipated date of discharge: 02/12/18 - Constitutional Vitals: Temp Pulse Resp BP Pulse Ox 98.7 F 103 16 151/80 94 02/12/18 08:10 02/12/18 08:10 02/12/18 08:10 02/12/18 08:10 02/12/18 08:10 General appearance: Present: cooperative, A&O X 3, pleasant, no acute distress, answers questions appropriately - Head Head exam: Present: atraumatic, normocephalic - Eye Eye exam: Present: PERRL, conjuntiva pink, sclera anicteric Pupils: Present: PERRL - Neck Neck exam general surgery: Present: supple, trachea midline. Absent: lymphadenopathy - Respiratory Respiratory exam: Present: CTAB. Absent: accessory muscle use, rales, rhonchi, wheezes - Cardiovascular Cardiovascular exam: Present: RRR, +S1, +S2. Absent: diastolic murmur, gallop, rubs, systolic murmur - GI/Abdominal GI/Abdominal exam: Present: normal bowel sounds, soft, no peritoneal signs. Absent: distended, tenderness - Extremities Exam Extremities exam: Present: warm, radial pulses palpable and symmetrical. Absent: calf tenderness, cyanotic, pedal edema - [place] Comments: Left knee incision dressing dry and intact. No drainage. No sign of infection. - Neurological Exam Neurological exam: Present: CN II-XII intact, oriented X3, no focal deficits. Absent: pronater drift, facial droop, speech deficit - Skin Skin exam: Present: dry, intact - Patient Status Disposition: Home Health Service Condition: Good Functional capacity at discharge: uses cane/walker Overall status at discharge: patient is progressing back to baseline - Discharge Instructions Follow Up With: Caity Lutz FOOT DOCTOR [Primary Care Provider] - - Diet and Activity Activity: as per physical therapy Diet: diabetic diet
--- NOTE | 2018-02-12 13:04 | Physician Discharge Referral ---
Addendum entered and electronically signed by Baron Box MD 02/12/18 13:23: Original Note: Home Health/Hosp Referral Info Transfer to: Home Health Provider in Charge Post Discharge: PCP - Diagnosis (1) Status post total left knee replacement Priority: Primary Status: Acute (2) Leukocytosis Priority: Secondary Status: Acute (3) Hypertension Priority: Secondary Status: Chronic (4) Coronary artery disease Priority: Secondary Status: Chronic (5) Type 2 diabetes mellitus Priority: Secondary Status: Chronic - Respiratory Orders Smoking Cessation: Smoking cessation has been advised. For more information, call the [place] Tobacco Quit Line at 3-781-JZAK-NOW. - Diet/Nutrition Diet/Nutrition Orders: No Concentrated Sweets - Activity Activity Orders: Walker - Services Needed Following services are medically necessary services: Nursing, Physical Therapy - Transfer Medications Home Medications: Clopidogrel [Plavix] 75 mg PO DAILY 02/02/17 [History] Ezetimibe 10 mg PO DAILY 02/02/17 [History] Gabapentin [Neurontin] 600 mg PO TID 02/02/17 [History] Pantoprazole Sodium 40 mg PO BID 02/02/17 [History] Simvastatin [Zocor] 80 mg PO HS 02/02/17 [History] metFORMIN [Glucophage] 500 mg PO BIDWM 02/02/17 [History] Docusate [Colace] 100 mg PO BID 10 Days #20 capsule 01/30/18 [Rx] Trazodone HCl 50 mg PO HS 01/31/18 [History] Acetaminophen [Tylenol] 650 mg PO Q6HR PRN 02/07/18 [History] Aspirin [Lo-Dose Aspirin EC] 81 mg PO 02/07/18 [History] Doxycycline 100 mg PO BID 7 Days #14 capsule 02/07/18 [Rx] Ipratropium/Albuterol Neb [Duoneb] 3 ml IH [id number] inhsol 02/07/18 [Rx] Lidocaine Patch [Lidoderm 5% patch] 1 each TP DAILY adh..patch 02/07/18 [Rx] Metoprolol [Lopressor] 50 mg PO BID tablet 02/07/18 [Rx] OxyCODONE Immed Rel [Roxicodone 5 MG] 5 mg PO Q4HR PRN 02/07/18 [History] Tizanidine HCl [Zanaflex] 4 mg PO Q8HR PRN 02/07/18 [History] levoFLOXacin [Levaquin] 750 mg PO DAILY 7 Days #7 tablet 02/07/18 [Rx] Mag Hydrox/Al Hydrox/Simeth [Maalox] 30 ml PO Q4H PRN udc 02/12/18 [Rx] Polyethylene Glycol 3350 [MiraLAX] 17 gm PO DAILY PRN powd.pack 02/12/18 [Rx] Allergies/Adverse Reactions: Allergy/AdvReac Type Severity Reaction Status Date / Time Penicillins Allergy Hives Verified 01/31/18 07:41 acetaminophen AdvReac lack of Verified 11/29/17 14:53 [From Tylenol-Codeine #3] therapeutic effect codeine AdvReac lack of Verified 11/29/17 14:53 [From Tylenol-Codeine #3] therapeutic effect Certification: Further, I certify that my clinical findings support that this patient is homebound (i.e. absences from home require considerable and taxing effort and are for medical reasons or [facility]aritan services or infrequently or short duration when for other reasons) because: Homebound Reason: Patient requires assistance of a person or device to safely leave home, Post-surgery restriction and or conditions limit ability to leave home, Leaving home requires considerable and taxing effort due to condition Attestation: My signature below is to certify that this patient is under my care and that I, or nurse practitioner, or a physician's patent legal assistant working with me, has a [id number] encounter with this patient.
== END 2018-02-12 16:05 | disposition home health service (06) | DRG 561 ==
LOC: INPGRE 20:39